=== PATIENT | male | born 1945 | race Caucasian/White ===

== ENCOUNTER 2019-12-23 09:23 | Outpatient (RCR) | payer MEDICARE, SELFPAY ==
--- NOTE | 2019-12-23 11:07 | PT.OIE ---
Current Diagnoses Benign paroxysmal vertigo, unspecified ear (12/23/19) Dizziness and giddiness (12/23/19) Visit Care Team Role Provider Type Zenaida Snyder PA-C Attending Provider Physician Primary Care Provider Referring Provider Specialty: Internal Medicine Address: [address] [place] [address], [id number] Email: [email or web address] Initial Evaluation PT-OP-A Visit Information Start: 12/23/19 10:56 Freq: Status: Active Protocol: Document 12/23/19 10:30 DCW (Rec: 12/23/19 11:07 DCW [id number]) Out-Patient Physical Therapy Visit Information Visit Information Visit Type Initial Evaluation Visit Start Time 10:30 Visit Stop Time 10:55 Total Visit Minutes 25 Visit Number 1 Number of SCALEMAKER Visits 0 Evaluation Information Evaluation Date 12/23/19 PT-OP-B Current Condition Start: 12/23/19 10:56 Freq: Status: Active Protocol: Document 12/23/19 10:30 DCW (Rec: 12/23/19 11:07 DCW [id number]) Current Condition History of Current Condition Onset Date 2 months Current Complaints Vertigo with position changes History of Current Condition Pt is a 74 year old male complaining of a two month history of motion-induced vertigo. Pt reports episodes last less than a minute. Symptoms are provoked by head movements when lying down. Pt denies recent hearing changes, tinnitus, diplopia, dysarthria, discoordination, or decreased mentation/ consciousness. Pt denies any other relevent medical history , other than recent allergy/ sinus issues. PT-OP-C Subjective Start: 12/23/19 10:56 Freq: Status: Active Protocol: Document 12/23/19 10:30 DCW (Rec: 12/23/19 11:07 DCW [id number]) OP-PT Subjective Patient Comments Patient Comments I looked it up, and I think I need the Amanda maneuver. All my symptoms are exavtly what the internet said. Patient Questionnaires Dizziness Handicap Inventory DHI Score 12% DHI Functional Impairment 1 to 19% Impaired (Score 1-19) PT-OP-O Vestibular Start: 12/23/19 10:56 Freq: Status: Active Protocol: Document 12/23/19 10:30 DCW (Rec: 12/23/19 11:07 [facility] [id number]) Vestibular Assessment Auditory Tests Sheikh Test Negative Rinne Test Negative Air Conduction Results Equal Visual Testing Smooth Pursuits Horizontal WNL Smooth Pursuits Vertical WNL Saccades Horizontal WNL Saccades Vertical WNL Heave Test Negative Thrust Head Negative Positional Testing [place]-Hallpike Positive Left,Negative Right, Upbeating,< 60 Seconds Comments Vestibular Comments During left [place]-Hallpike test, pt complained of vertigo and demonstrated up-beating, torsional nystagmus lasting approximately 10 seconds PT-OP-Q Treatments Start: 12/23/19 10:56 Freq: Status: Active Protocol: Document 12/23/19 10:30 DCW (Rec: 12/23/19 11:07 [facility] [id number]) Canalithic Repositioning BPPV Treatment Amanda Affected Canal(s) Left Posterior Reps x2 PT-OP-T Assessment and Plan Start: 12/23/19 10:56 Freq: Status: Active Protocol: Document 12/23/19 10:30 DCW (Rec: 12/23/19 11:07 [facility] [id number]) Physical Therapy Assessment Rehab Potential Rehabilitation Potential Excellent Evaluation Complexity Number of Personal Factors/Comorbidities 0 Number of Body Systems Impaired 1-2 Clinical Presentation at Evaluation Stable Impairments Impairments Balance,Vestibular Goals Two Impairment Pt displayed positive left [place] -Hallpike Short Term Goal (STG) Pt to have negative [place]- Hallpike test bilaterally STG Duration 01/06/20 One Impairment Pt reports symptom of vertigo when rolling R->L doing his hip HEP Short Term Goal (STG) Pt to perform hip HEP with no symptoms of vertigo STG Duration 01/06/20 Assessment Summary Assessment During left [place]tan-Hallpike test, pt complained of vertigo and demonstrated up-beating, torsional nystagmus lasting approximately 10 seconds, consistent with diagnosis of left-sided posterior canal BPPV, canalithiasis-type. Pt was treated with a left-sided Amanda maneuver. Pt complained of symptoms in the first and third position, which is normally indicative of a successful treatment. Further positional testing was negative. Pt was educated on BPPV, expectations for treatment, possible recurrence (BPPV has a ~50% recurrence rate in the five years following treatment), and post -Amanda restrictions. Pt to return in ~1 week for a follow -up appointment, and intermittently afterward as indicated for treatment of BPPV. Physical Therapy Plan Frequency and Duration Frequency of Treatment 1x/Week Duration of Treatment 5 weeks Plan of Care Start Date 12/23/19 Plan of Care End Date 01/27/20 Therapeutic Interventions Therapeutic Interventions Balance Training,Canalithic Repositioning,Vestibular Rehabilitation Next Visit Focus/Plan Next Note Type Treatment Note Next Visit Plan Further positional testing and CRM as indicated
--- NOTE | 2019-12-23 11:07 | PT.OPPOC ---
Physical, Occupational & Speech Therapy At [facility] Current Diagnoses Benign paroxysmal vertigo, unspecified ear (12/23/19) Dizziness and giddiness (12/23/19) Visit Care Team Role Provider Type Zenaida Snyder PA-C Attending Provider Physician Primary Care Provider Referring Provider Specialty: Internal Medicine Address: [address] [place] [address], [facility] Email: [email or web address] Plan Of Care PT-OP-T Assessment and Plan Start: 12/23/19 10:56 Freq: Status: Active Protocol: Document 12/23/19 10:30 DCW (Rec: 12/23/19 11:07 DCW [id number]) Physical Therapy Assessment Rehab Potential Rehabilitation Potential Excellent Evaluation Complexity Number of Personal Factors/Comorbidities 0 Number of Body Systems Impaired 1-2 Clinical Presentation at Evaluation Stable Impairments Impairments Balance,Vestibular Goals Two Impairment Pt displayed positive left [place] -Hallpike Short Term Goal (STG) Pt to have negative [place]- Hallpike test bilaterally STG Duration 01/06/20 One Impairment Pt reports symptom of vertigo when rolling R->L doing his hip HEP Short Term Goal (STG) Pt to perform hip HEP with no symptoms of vertigo STG Duration 01/06/20 Assessment Summary Assessment During left Erin-Hallpike test, pt complained of vertigo and demonstrated up-beating, torsional nystagmus lasting approximately 10 seconds, consistent with diagnosis of left-sided posterior canal BPPV, canalithiasis-type. Pt was treated with a left-sided Amanda maneuver. Pt complained of symptoms in the first and third position, which is normally indicative of a successful treatment. Further positional testing was negative. Pt was educated on BPPV, expectations for treatment, possible recurrence (BPPV has a ~50% recurrence rate in the five years following treatment), and post -Amanda restrictions. Pt to return in ~1 week for a follow -up appointment, and intermittently afterward as indicated for treatment of BPPV. Physical Therapy Plan Frequency and Duration Frequency of Treatment 1x/Week Duration of Treatment 5 weeks Plan of Care Start Date 12/23/19 Plan of Care End Date 01/27/20 Therapeutic Interventions Therapeutic Interventions Balance Training,Canalithic Repositioning,Vestibular Rehabilitation Next Visit Focus/Plan Next Note Type Treatment Note Next Visit Plan Further positional testing and CRM as indicated Plan of Care Dates Plan of Care Start Date 12/23/19 Plan of Care End Date 01/27/20 Electronically Signed by: Sriram Nielsen, VIPUL 12/23/19 1107 Please Sign and Return: I have reviewed this Plan of Care and certify that the skilled therapy services above are required to meet the patient?s needs. Physician Signature Date Printed Name and Credentials Clinical Instructor Signature Printed Name and Credentials
--- NOTE | 2020-03-16 17:31 | PT.OPDS ---
Current Diagnoses Benign paroxysmal vertigo, unspecified ear (12/23/19) Dizziness and giddiness (12/23/19) Visit Care Team Role Provider Type Zenaida Snyder PA-C Attending Provider Physician Primary Care Provider Referring Provider Specialty: Internal Medicine Address: [address] [place] [address], [facility] Email: [email or web address] Visit Number Visit Number 1 Discharge Summary PT-OP-B Current Condition Start: 12/23/19 10:56 Freq: Status: Active Protocol: Document 12/23/19 10:30 DCW (Rec: 12/23/19 11:07 DCW [id number]) Current Condition History of Current Condition Onset Date 2 months Current Complaints Vertigo with position changes History of Current Condition Pt is a 74 year old male complaining of a two month history of motion-induced vertigo. Pt reports episodes last less than a minute. Symptoms are provoked by head movements when lying down. Pt denies recent hearing changes, tinnitus, diplopia, dysarthria, discoordination, or decreased mentation/ consciousness. Pt denies any other relevent medical history , other than recent allergy/ sinus issues. PT-OP-C Subjective Start: 12/23/19 10:56 Freq: Status: Active Protocol: Document 12/23/19 10:30 DCW (Rec: 12/23/19 11:07 DCW [id number]) OP-PT Subjective Patient Comments Patient Comments I looked it up, and I think I need the Amanda maneuver. All my symptoms are exavtly what the internet said. Patient Questionnaires Dizziness Handicap Inventory DHI Score 12% DHI Functional Impairment 1 to 19% Impaired (Score 1-19) PT-OP-O Vestibular Start: 12/23/19 10:56 Freq: Status: Active Protocol: Document 12/23/19 10:30 DCW (Rec: 12/23/19 11:07 DCW [id number]) Vestibular Assessment Auditory Tests Sheikh Test Negative Rinne Test Negative Air Conduction Results Equal Visual Testing Smooth Pursuits Horizontal WNL Smooth Pursuits Vertical WNL Saccades Horizontal WNL Saccades Vertical WNL Heave Test Negative Thrust Head Negative Positional Testing [place]-Hallpike Positive Left,Negative Right, Upbeating,< 60 Seconds Comments Vestibular Comments During left [place]-Hallpike test, pt complained of vertigo and demonstrated up-beating, torsional nystagmus lasting approximately 10 seconds PT-OP-T Assessment and Plan Start: 12/23/19 10:56 Freq: Status: Active Protocol: Document 03/16/20 17:30 DCW (Rec: 03/16/20 17:31 DCW [id number]) Physical Therapy Assessment Assessment Summary Assessment Pt canceled follow up appointment, did not schedule any more appointments, and has now not been seen in 2.5 months. Pt will be discharged at this time, and will need a new referral in order to return to skilled therapy
== END 2020-03-17 08:17 ==
LOC: PHYS 09:23
PROVIDERS: PCP Student in an Organized Health Care Education/Training Program; Referring Provider Student in an Organized Health Care Education/Training Program; Visit Provider Student in an Organized Health Care Education/Training Program
DX: H81.10 Benign paroxysmal vertigo, unspecified ear (principal)
CPT/HCPCS: 95992; 97161

== ENCOUNTER → 2020-02-11 11:32 | Outpatient (CLI) | payer MEDICARE, SELFPAY ==
--- NOTE | 2020-02-11 | DI.RAD.S_ITS ---
PROCEDURE: XR KNEE LT 3V INDICATIONS: Pain in left knee TECHNIQUE: 3 views of the knee were acquired. COMPARISON: None. FINDINGS: Bones: No fractures or dislocations. No suspicious bony lesions. Mild tricompartmental osteoarthritis. Soft tissues: No joint effusion. Chondrocalcinosis. IMPRESSION: No fracture. No acute osseous lesion. If symptoms and/or clinical suspicion for pathology persists, further assessment with repeat radiographs (7-10 days) or advanced imaging (e.g. CT, MRI or bone scan) may be helpful. Dictated by: Marilyn Flynn MD, PhD on 02/11/2020 at 15:54 Approved by: Marilyn Flynn MD, PhD on 02/11/2020 at 15:55
== END ==
PROVIDERS: PCP Student in an Organized Health Care Education/Training Program; Referring Provider Student in an Organized Health Care Education/Training Program; Visit Provider Student in an Organized Health Care Education/Training Program
DX: M25.562 Pain in left knee (principal); M11.262 Other chondrocalcinosis, left knee
CPT/HCPCS: 73562